=== PATIENT | male | born 1935 | race Caucasian/White ===

== ENCOUNTER → 2024-11-08 11:36 | Outpatient (REF) | payer MEDICARE, SELFPAY | LOC: RAD 11:36 | PROVIDERS: ATTENDING PHYSICIAN Nurse Practitioner; FAMILY PHYSICIAN Internal Medicine | DX: I48.20 Chronic atrial fibrillation, unspecified (principal) | CPT/HCPCS: 75572; Q9967 ==

== ENCOUNTER 2025-01-23 08:21 | Inpatient (IN) | payer MEDICARE, SELFPAY ==
[2025-01-15 12:07] LABS: % Immature Granulocytes 0.4 % (0-0.5); % Monocytes 9.4 % (1.7-9.3); % Neutrophils 66.2 % (42.2-75.2); Absolute Basophils 0.1 10^3/uL (0-0.2); Absolute Eosinophils 0.6 10^3/uL (0-0.7); Absolute Lymphocytes 1.1 10^3/uL (1.2-3.4); Absolute Monocytes 0.7 10^3/uL (0.1-0.6); Hematocrit 37.6 % (39.0-52.0); Mean Corp Hgb Conc. 31.9 g/dL (33.0-37.0); Mean Platelet Volume 9.6 fL (7.4-10.4); Nucleated Red Blood Cells % 0 % (-); Platelet Count 237 10^3/uL (130-400); Red Cell Dist. Width 14.7 % (11.5-14.5); White Blood Cell Count 7.6 10^3/uL (4.8-10.8)
[2025-01-15 12:19] LABS: INR 1.82; PT 21.3 Sec (11.4-14.6)
[2025-01-15 13:17] LABS: ALT (SGPT) 56 U/L (0-50); AST (SGOT) 86 U/L (17-59); Albumin 3.9 g/dl (3.5-5.0); Alkaline Phosphatase 200 U/L (38-126); Blood Urea Nitrogen 24 mg/dl (9-20); Calcium 9.2 mg/dl (8.4-10.2); Carbon Dioxide 31 mmol/L (22-30); Chloride 97 mmol/L (98-107); Glucose 175 mg/dl (70-99); Potassium 4.4 mmol/L (3.5-5.1); Sodium 140 mmol/L (135-145); Total Bilirubin 1.1 mg/dl (0.2-1.3); Total Protein 6.8 g/dl (6.3-8.2); eGFR 48.34
[2025-01-15 13:26] VITALS: BMI 28.2
[2025-01-23] VITALS (17 sets, daily range): BP systolic 96–128; BP diastolic 51–82; BMI 28.0
--- NOTE | 2025-01-23 08:25 | WATCHMAN.MD ---
Watchman Implant
-
ELECTROPHYSIOLOGY/INTERVENTIONAL PROCEDURE REPORT
Date of Procedure: January 23, 2025
Referring: Thomas Jorgensen MD
Primary Care Provider: �Sharan Gandara MD
Assisting Physician: Efren Patel MD
PROCEDURES:
1. Left atrial appendage occlusion device using 27 mm WATCHMAN FLX device
2. Intracardiac echocardiography
3. Ultrasound-guided right common femoral venous access
INDICATION: [id number] and HAS-BLED 5
ACCESS: Right common femoral vein, 16Fr sheath and 9Fr. sheaths, under US guidance using micropunture kit.
HEMODYNAMICS : (mmHg)
LA Pressure: 20
PROCEDURE REPORT:
After informed consent and patient safety 'Timeout' the patient was intubated and sedated by the anesthesiology service. Under ultrasound guidance, the right femoral vein was accessed by Dr. Juan Alberto Patel twice for transseptal puncture and
intracardiac ultrasound, respectively. Concomitant transesophageal echocardiogram was performed by Dr. Leno Murphy
Baseline intracardiac ultrasound demonstrated no pericardial effusion and baseline EDMOND images revealed a trace pericardial effusion.
After ruling out a left atrial appendage thrombus, the patient was heparinized for an ACT between 350-400 seconds and under EDMOND and intracardiac ultrasound guidance transseptal puncture was performed by Dr. Shannon Olvera using the versa cross
[place] trans-septal system in a inferior position on the inferior-superior axis and a mid position on the anterior-posterior axis. Left atrial pressure was 20 millimeters mercury.
Once transseptal puncture was performed over the [place] wire parked in the today left atrial appendage, the watchman access double curve sheath was advanced into the LA. A 5 [place] pigtail catheter was placed into the left atrial appendage and an
appendage gram was performed using intravenous contrast dye demonstrating a chicken wing type anatomy that was suitable likely for a 27 mm WATCHMAN FLX device.
After appropriately prepping the device, Dr. Juan Alberto Patel successfully deployed a 27 mm WATCHMAN FLX device. Device showed excellent positioning with no leaks post device deployment. 10 to 18% compression was noted in the device after deployment.
A 'tug-test' was performed demonstrating stability of the device. Given PASS criteria were met, the device was then released successfully by Dr. Dr. Juan Alberto Patel
Post procedure, EDMOND imaging demonstrated no new or worse pericardial effusion. Sheaths and catheters were removed from the left atrium and heparin was reversed using protamine. Catheters removed from the femoral veins with [id number] suture
applied. The patient tolerated the procedure well.
RADIATION SUMMARY: Fluoro Time (min): 13, Dose (mGy): 511, DAP (Gy.cm2) : 58
Closure Device: Figure of 8 suture
CONCLUSIONS
1. Successful deployment of 27 mm WATCHMAN FLX device under EDMOND and ICE guidance.
RECOMMENDATIONS
1. Plan for daily Coumadin with INR goal of 2-3 for the next 3
2. 90-day EDMOND post procedure to assess stability of device and rule out any shashank-device leaks.
3. Figure of 8 suture removal prior to discharge.
Copy to: Thomas Jorgensen MD and Sharan Gandara MD
Shannon Olvera MD, [facility]
[2025-01-23 09:02] LABS: Glucose - Point of Care 129 mg/dl (70-99)
[2025-01-23 09:09] LABS: INR 1.73; PT 20.5 Sec (11.4-14.6)
[2025-01-23 11:03] LABS: ACT-LR - POC 297 Seconds (116-155)
[2025-01-23 11:20] LABS: ACT-LR - POC 321 Seconds (116-155)
--- NOTE | 2025-01-23 12:27 | WATCHMAN.MD ---
Watchman Implant
-
WATCHMAN LEFT ATRIAL APPENDAGE CLOSURE DEVICE REPORT
Date: January 23, 2025
Referring Venue Manager: Thomas Jorgensen MD
Primary Care Provider: �Sharan Gandara MD
History:
[id number] 6 (age, vasc dz, DM, HFpEF, h/o HTN)
HAS-BLED 5 (abnl renal fxn, abnl liver fxn, age, prior bleeding, drugs predispose to bleeding)
Watchman Team:
EDMOND: Dr Leno Murphy M.D.
Transseptal necktie operator pockets and pieces: Dr Shannon Olvera M.D.
Implanter: Dr Efren Patel M.D.
Procedure: Watchman left atrial appendage closure.
The patient was placed under general anesthesia by anesthesia.
A EDMOND probe was placed.
Ultrasound Guidance with real-time visualization of needle insertion and vessel patency performed by for femoral venous Vascular Access. Images were taken and saved for the patient's permanent record. Imaging findings typical femoral venous
anatomy. Direct visualization of needle puncture into the femoral vein was observed and recorded.
A 10 Fr sheath was placed in the right femoral vein for ICE.
8 Fr sheath was placed via the right femoral vein then upsized to allow access for the watchman sheath
LISSY type: Cauliflower/chicken wing
Heparin was administered to goal ACT 350-400 seconds.
Intracardiac ultrasound catheter was placed in the right atrium identifying the intraatrial septum for transseptal puncture.
Transseptal puncture was performed By Dr Olvera. This entailed advancing a sheath with dilator into the superior vena cava and withdrawing both (monitoring intracardiac ultrasound, fluoroscopy and tip pressure) with the tip oriented toward the atrial
septum. The fossa ovalis was engaged (indicated by sudden displacement of the sheath tip as well as tenting of the fossa seen on intracardiac ultrasound). RF transseptal system was used. Left atrial catheter position was confirmed by
echocardiographic imaging, pressure monitoring (LA mean pressure 18 mm Hg) and fluoroscopy. The sheath was advanced over the dilator and positioned in the left atrium.
Dr Efren Patel positioned and deployed the Watchman device.
The 14 [place]egalese watchman access system sheath double curve was substituted for the transeptal sheath. A 5 [place]e curved pigtail was then substituted for the guidewire through the watchman sheath to the ostium of the left atrial appendage. The 5
[place]egalese pigtail was advanced into the left atrial appendage and angiography was performed. This allowed additional measurements assessing left atrial appendage ostium size and LISSY morphology.
The pigtail catheter was removed from the access sheath. A 27 mm Watchman device was flushed and then placed into the watchman access sheath and advanced through the sheath. The Watchman was clamped into the sheath. The device was deployed into
the left atrial appendage.
The PASS criteria were met. The stability tug test was performed and passed. Angiography and transesophageal echocardiogram revealed no leaks nor jets. The position was confirmed on angiography and transesophageal echo and there were no
significant shoulders. Compression ranges from 10 % to 18 %.
After meeting the PASS release criteria the device was released into the left atrial appendage.
The watchman access sheath was then removed through the transseptal into the IVC. A figure 8 suture closure was performed at the site of the femoral venous puncture and the sheath as it was removed.
Impression:
- Transseptal puncture by Dr Olvera.
- Successful Deployment [ ] mm WATCHMAN left atrial appendage closure device by Dr Efren Patel.
- Ultrasound guidance for vascular access
Recommended anticoagulation strategy for this specific patient is:
Warfarin with goal INR 2-3 for 3 months, then asa 81 mg daily
Transesophageal echocardiogram at 3 months post procedure will be used to assess for any device related thrombus, assess for any leaks, and aid in the decision making regarding altering anticoagulation/antiplatelet recommendations. At post procedure
EDMOND leaks > 5mm are significant and require chronic full anticoagulation or consideration for leak closure. Melinda-device leaks between 3 and 5 mm may also carry an increased risk. These patients will need individualized risk assessment and
discussion with Watchman team. Leaks < 3 mm are generally considered non-significant. With leak of any size suggestion is to check EDMOND 12 mo out from implant.
Continue cardiovascular care with Dr. Jorgensen.
cc:
Thomas Jorgensen MD
Sharan tran MD
[2025-01-23 12:38] LABS: APTT 35.5 Sec (23.4-35.0)
[2025-01-23 13:28] LABS: Glucose - Point of Care 137 mg/dl (70-99)
[2025-01-23] MEDS: COUMADIN 10 MG PO (15:39)
--- NOTE | 2025-01-23 18:47 | PTCARENOTE ---
Received pt post Watchman. VSS. Pt's right groin site w/ dressing clean, dry and intact. Pt denies any discomfort. Will monitor.
[2025-01-23] MEDS: HEPARIN 25000 UNITS/250 ML IV (20:46)
--- NOTE | 2025-01-23 21:10 | PTCARENOTE ---
Heparin started @ 10ml/hr as documented in the MAR- reached to Dr. Juan Alberto Patel about ordering home med- PA-[facility] to put orders in .
[2025-01-23 22:25] LABS: Glucose - Point of Care 160 mg/dl (70-99)
[2025-01-23] MEDS: ZETIA 10 MG PO (22:38)
[2025-01-23] MEDS: CRESTOR 40 MG PO (22:38)
[2025-01-24 03:12] VITALS: BP 110/70
[2025-01-24 03:46] LABS: INR 1.77; PT 20.8 Sec (11.4-14.6)
[2025-01-24 03:47] LABS: APTT 68.3 Sec (23.4-35.0)
[2025-01-24 03:49] LABS: Hematocrit 33.5 % (39.0-52.0); Hemoglobin 10.7 g/dL (13.0-18.0); Mean Corp Hgb Conc. 31.9 g/dL (33.0-37.0); Mean Corpuscular Volume 93.8 fL (80.0-94.0); Mean Platelet Volume 9.5 fL (7.4-10.4); Platelet Count 183 10^3/uL (130-400); Red Blood Cell Count 3.57 10^6/uL (4.70-6.10); Red Cell Dist. Width 14.6 % (11.5-14.5); White Blood Cell Count 10.4 10^3/uL (4.8-10.8)
[2025-01-24 04:15] LABS: Blood Urea Nitrogen 28 mg/dl (9-20); Calcium 9.3 mg/dl (8.4-10.2); Carbon Dioxide 29 mmol/L (22-30); Chloride 100 mmol/L (98-107); Estimated Creatinine Clearance 48 ml/min; Glucose 137 mg/dl (70-99); Magnesium 2.3 mg/dl (1.6-2.3); Potassium 4.9 mmol/L (3.5-5.1); Sodium 136 mmol/L (135-145); eGFR > 60.00
[2025-01-24 05:55] VITALS: BMI 28.8
[2025-01-24 06:00] VITALS: BMI 28.8
[2025-01-24 07:48] VITALS: BP 122/64
[2025-01-24 08:00] LABS: Glucose - Point of Care 143 mg/dl (70-99)
[2025-01-24] MEDS: COUMADIN 10 MG PO (08:07)
[2025-01-24] MEDS: PROSCAR 5 MG PO (08:07)
[2025-01-24] MEDS: PEN VK 500 MG PO (08:07)
[2025-01-24] MEDS: ProAmatine 2.5 MG PO ×2 (08:07→12:58)
[2025-01-24] MEDS: LASIX 40 MG PO (08:07)
[2025-01-24] MEDS: ZOLOFT 50 MG PO (08:08)
[2025-01-24] MEDS: TOPROL XL 25 MG PO (08:08)
[2025-01-24] MEDS: VITAMIN D3 (cholecalciferol) 25 MCG PO (08:08)
[2025-01-24] MEDS: ADVAIR HFA 115/21 MCG INHALER 2 PUFF INH (08:37)
--- NOTE | 2025-01-24 09:11 | W.PN.CARDCBS ---
Addendum entered and electronically signed by Efren Patel MD 01/24/25 11:18:
Patient seen, interviewed and examined by me.
Patient tells me that he feels great. He tells me that he has been very appreciative of the attentive care he has received at [facility] over the past 2 days.
He has no chest pain shortness of breath palpitations or dizziness.
Well-appearing, no acute distress
Regular rate and rhythm with normal S1 and S2, no S3 no S4. There is a grade 1/6 apical holosystolic murmur and no rubs. PMI is normally placed.
Lungs are clear to auscultation bilaterally without wheezes rales or rhonchi.
Abdomen soft nontender nondistended with normoactive bowel sounds
Extremities show trace pretibial edema bilaterally no clubbing or cyanosis.
Right groin without hematoma or bruit, +2 femoral pulses.
Neurologic exam is grossly nonfocal.
His INR is subtherapeutic.
He was given 10 mg of warfarin yesterday
We are giving 10 mg of warfarin this morning
We will check INR today at approximately 4 PM
If INR is rising he can be discharged to home to resume his typical warfarin dosing with close follow-up of INRs to target INR between 2 and 3.
If INR is not rising we will discuss with him the option of maintaining intravenous heparin tonight in the hospital and reassessing INR in the morning versus initiating Lovenox and consideration for discharge tonight with follow-up of INR as an
outpatient.
All of his questions have been answered.
Original Note:
Today's Communication / Plan
-
Warfarin 10mg now
repeat INR at 4pm
consider d/c if INR rising
followup w/Dr. Jorgensen
Impression / Plan
-
PCP: Sharan Gandara MD
CDY: Andrew Jorgensen MD
89 y/o, PMH sig CAD, prior CABG/stents, ICM, HFpEF, LBBB, Bi-V ICD and bioprosthetic AVR, longstanding PAF with [id number]=5, on warfarin.
Presents with increased gait disturbance with frequent falls, sustained fractures. Also with GIB d/t diverticulosis requiring transfusions. HAS-BLED=5.
S/P Watchman device implant. INR day of procedure was 1.73.
IMPRESSION:
AFib
GIB d/t diverticulosis/blood transfusion (2019)
Gait disturbance with falls/fractures
s/p Watchman device implant, 01/23/24
CAD, s/p CABG x3 w/Bioprosthetic AVR (1992)
LAD PCI (2014)
ICM
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
LBBB
Bi-V ICD (2017)
HTN
HLD
DM
COPD
CKD3a
Bladder Ca
PLAN:
Tele- AFib 90-110s, intermittent VPacing
Right groin site stable
Warfarin 10mg yesterday and heparin gtt overnight-
INR 1.77 today- will give 10mg warfarin now, continue heparpin gtt and repeat INR at 4pm
if INR rising, will likely d/c on regular scheduled dosing (6mg --, 3mg ---)
repeat INR early next week with results to Dr. Gandara who manages warfarin
3 month EDMOND arranged post watchman
followup w/Dr. Jorgensen as scheduled
Progress Note - Silk Worker
Subjective
Date of Service: January 24, 2025
Denies cp/palps/dyspnea
groin site without pain
oob ambulating w/walker
Objective
Labs:
01/24/25 03:21
01/24/25 03:21
Labs
Hgb 10.7 g/dL (13.0-18.0) L 01/24/25 03:21
Hct 33.5 % (39.0-52.0) L 01/24/25 03:21
Plt Count 183 10^3/uL (130-400) 01/24/25 03:21
PT Cancelled 01/24/25 06:00
INR Cancelled 01/24/25 06:00
APTT 68.3 Sec (23.4-35.0) H 01/24/25 03:21
Sodium 136 mmol/L (135-145) 01/24/25 03:21
Potassium 4.9 mmol/L (3.5-5.1) 01/24/25 03:21
BUN 28 mg/dl (9-20) H 01/24/25 03:21
Creatinine 1.1 mg/dL (0.7-1.3) 01/24/25 03:21
Glucose 137 mg/dl (70-99) H 01/24/25 03:21
Vital Signs and I&O:
Vital Signs
Temp Pulse Resp BP Pulse Ox
98.4 F 76 18 122/64 97
01/24/25 07:53 01/24/25 08:40 01/24/25 08:40 01/24/25 07:48 01/24/25 07:53
Vital Signs
Temp Pulse Resp BP Pulse Ox
98.4 F 76 18 122/64 97
01/24/25 07:53 01/24/25 08:40 01/24/25 08:40 01/24/25 07:48 01/24/25 07:53
Intake & Output
01/22/25 01/23/25 01/24/25 01/25/25
06:59 06:59 06:59 06:59
Intake Total 680 / 680
Balance 680 / 680
Physical Exam
Physical Exam
AAOx3, MAEE 5/5
RRR S1 S2, vpaced w/underlying afib, no murmurs
CTA bilat, non labored
right groin site GERALDO, no ht/bleeding, non tender
bilat extremities w/palpable distal pulses, no edema
--- NOTE | 2025-01-24 10:12 | PTCARENOTE ---
Rec'd pt sitting on side of bed. AOX3. R groin site is c/d/i. Pt has no complaints/discomfort at this time. VSS. Heparin gtt infusing at 1100 units/hr. Plan of care reviewed w/ pt. Verbalizes understanding. Call mccain is w/in reach.
[2025-01-24 10:45] LABS: APTT 70.3 Sec (23.4-35.0)
--- NOTE | 2025-01-24 11:57 | CM ---
Chart reviewed. Patient is independent of ADLS, lives with his in Independent Living at [facility], 4th floor, elevator access, Home Health Aide on 5 hrs, ambulates with a RW. Patient said his son is in from [place] and will
be taking him home. Plan is for the patient to return home. CM to follow
[2025-01-24 12:05] LABS: Glucose - Point of Care 136 mg/dl (70-99)
[2025-01-24 12:08] VITALS: BP 113/67
[2025-01-24 15:40] VITALS: BP 101/62
--- NOTE | 2025-01-24 15:52 | PTCARENOTE ---
Pt w/ 14 beat run of VT. Asymptomatic and sitting up in chair. BP 101/62. Anca Murray NP aware.
[2025-01-24 16:09] LABS: INR 2.26; PT 25.4 Sec (11.4-14.6)
[2025-01-24 16:11] LABS: APTT 77.9 Sec (23.4-35.0)
--- NOTE | 2025-01-24 16:47 | W.PN.UPDATE ---
Update Note
Progress Note Update
Repeat INR 2.26.
Discontinue heparin and d/c home
will resume warfarin at usual dosing schedule on 01/25.
Repeat INR on Monday 01/29, results to Dr. Gandara.
Followup EDMOND in March as scheduled.
Dr. Patel aware of above.
--- NOTE | 2025-01-24 16:48 | W.DS.TRANS ---
DC Summary - Unit Aide Tech
-
Discharge Instructions:
Discharge Diagnosis/Procedures Atrial fibrillation post Watchman device implant
Diet Low Cholesterol,Diabetic, Carb Controlled
Driving Restrictions No driving for 24 hours
Blood Work INR on Monday 01/29- results to Dr. Gandara
BMP, CBC, PT/INR in March- about 5-7 days before
EDMOND at [facility]
Others Tests Follow up EDMOND has been scheduled for you at
[facility] on 04/27/2025 with
Sammi. You will receive instructions in the
mail.
Instructions:
Stand-Alone Forms: DC Instructions- Cath/EP Lab
Changes to Home Medications: No
Discharge Medications:
DC Medications w/original date entered in [employer]
betamethasone dipropionate 0.05 % topical cream 1 applic topical BID PRN leg rash 01/10/25
cholecalciferol (vitamin D3) 25 mcg (1,000 unit) tablet (Vitamin D3) 25 mcg PO DAILY Supplement 01/10/25
ezetimibe 10 mg tablet 10 mg PO HS High Cholesterol 01/10/25
finasteride 5 mg tablet 5 mg PO DAILY Urinary Issue 01/10/25
fluticasone 250 mcg-salmeterol 50 mcg/dose blistr powdr for inhalation (Advair Diskus) 2 inh inhalation R DAILY Lung/Breathing Issues 01/10/25
furosemide 40 mg tablet 40 mg PO DAILY Fluid Retention/Swelling 01/10/25
ketoconazole 2 % topical cream 1 applic topical PRN PRN leg rash 01/10/25
metformin 500 mg tablet 500 mg PO DAILY Diabetes 01/10/25
metoprolol succinate 25 mg tablet,extended release 24 hr 25 mg PO DAILY Blood Pressure 01/10/25
midodrine 2.5 mg tablet 2.5 mg PO TID Blood Pressure 01/10/25
penicillin V potassium 500 mg tablet 500 mg PO DAILY Infection 01/10/25
prednisolone acetate 1 % eye drops,suspension (Pred Forte) 2 drp ophthalmic (eye) PRN PRN twice weekly as needed 01/10/25
rosuvastatin 40 mg tablet 40 mg PO HS High Cholesterol 01/10/25
sertraline 50 mg tablet 50 mg PO DAILY Mental Health/Anxiety 01/10/25
soy isoflavone-black cohosh root-magnolia bark 155 mg capsule (Estroven) 1 cap PO HS Hormonal Agent 01/10/25
warfarin 6 mg tablet 6 mg PO MOWEFR@2200 Blood Clot Prevention/Tx 01/10/25
warfarin 6 mg tablet 3 mg PO SUTUTHSA@2200 Blood Clot Prevention/Tx 01/23/25
Home Medication Changes
Pending Results: No
--- NOTE | 2025-01-24 17:20 | PTCARENOTE ---
IV and tele removed. Discharge instructions reviewed w/ pt and spouse. Verbalizes understanding. Belongings collected and sent w/ pt. Discharged to home.
== END 2025-01-24 17:26 | disposition home or self-care (01) | DRG 274 ==
LOC: IVU 08:21
PROVIDERS: Internal Medicine Interventional Cardiology; Nuclear Medicine Nuclear Cardiology; Nurse Practitioner; Nurse Practitioner Adult Health; ADMITTING PHYSICIAN Internal Medicine Cardiovascular Disease; FAMILY PHYSICIAN Internal Medicine
PROC: B24BZZ4 Ultrasonography of Heart with Aorta, Transesophageal (ICD-10-PCS; 2025-01-23)
PROC: 02L73DK Occlusion of Left Atrial Appendage with Intraluminal Device, Percutaneous Approach (ICD-10-PCS; 2025-01-23)
DX: I48.0 Paroxysmal atrial fibrillation (principal); Z00.6 Encounter for examination for normal comparison and control in clinical research program; I13.0 Hypertensive heart and chronic kidney disease with heart failure and stage 1 through stage 4 chronic kidney disease, or unspecified chronic kidney disease; I50.32 Chronic diastolic (congestive) heart failure; I25.10 Atherosclerotic heart disease of native coronary artery without angina pectoris; I25.5 Ischemic cardiomyopathy; I44.7 Left bundle-branch block, unspecified; N18.31 Chronic kidney disease, stage 3a; E78.5 Hyperlipidemia, unspecified; E11.22 Type 2 diabetes mellitus with diabetic chronic kidney disease; J44.9 Chronic obstructive pulmonary disease, unspecified; G47.33 Obstructive sleep apnea (adult) (pediatric); F32.A Depression, unspecified; F41.9 Anxiety disorder, unspecified; N40.0 Benign prostatic hyperplasia without lower urinary tract symptoms; R29.6 Repeated falls; M19.90 Unspecified osteoarthritis, unspecified site; Z95.1 Presence of aortocoronary bypass graft; Z95.810 Presence of automatic (implantable) cardiac defibrillator; Z87.891 Personal history of nicotine dependence; Z91.199 Patient's noncompliance with other medical treatment and regimen due to unspecified reason; Z79.84 Long term (current) use of oral hypoglycemic drugs; Z79.01 Long term (current) use of anticoagulants; Z95.3 Presence of xenogenic heart valve
CPT/HCPCS: 33340; 36415; 80048; 80053; 82962; 83735; 85025; 85027; 85347; 85610; 85730; 86850; 86900; 86901; 87070; 93005; 93355; 94640; C1759; C1892; C1894; Q9967